=== PATIENT | male | born 1990 | race Caucasian/White ===

== ENCOUNTER 2023-01-26 08:12 | Emergency (ER) | payer BC ==
[~2023-01-26] VITALS: Ht 177.8 cm; Wt 74.4 kg
--- NOTE | 2023-01-26 08:20 | NUR ---
Received pt 32 yrs male walking in from home c/o loerback pain since last night aware and alert [employer] respirtion spont and easy
--- NOTE | 2023-01-26 08:30 | NUR ---
[facility] SENT TO LAB
--- NOTE | 2023-01-26 08:45 | NUR ---
DR. ERICKSON AT BED SIDE
--- NOTE | 2023-01-26 09:04 | NUR ---
CALLED [facility] FOR DIANNA STODDARD
[2023-01-26] MEDS ORDERED: LIDO30AD10 TP (09:10)
[2023-01-26] MEDS ORDERED: CYCL5TAB PO (09:10)
[2023-01-26] MEDS ORDERED: IBUP-1955 PO (09:10)
[2023-01-26] MEDS ORDERED: KETOROLAC TROMETHAMINE 15 MG/ML VIAL ONE (09:18)
--- NOTE | 2023-01-26 09:20 | NUR ---
ABDOMINALE RICHI HERNANDEZD
[2023-01-26] MEDS ORDERED: KETOROLAC TROMETHAMINE INJ 30 MG/ML VIAL IM ONE (09:30)
--- NOTE | 2023-01-26 09:38 | NUR ---
Patient discharged to home in stable condition. Written and verbal after care instructions given. Patient verbalizes understanding of instruction.
[2023-01-26 09:49] VITALS: BP 122/86; TEMP 97.7; O2SAT 99
== END 2023-01-26 09:50 | disposition home or self-care (01) ==
LOC: ER 08:16
DX: S39.012A Strain of muscle, fascia and tendon of lower back, initial encounter (principal); X58.XXXA Exposure to other specified factors, initial encounter; Y93.89 Activity, other specified; Y92.89 Other specified places as the place of occurrence of the external cause; Y99.8 Other external cause status
CPT/HCPCS: 99285; 96372; J1885